=== PATIENT | male | born 1965 | race Caucasian/White ===

== ENCOUNTER 2017-01-14 11:37 | Emergency (ER) | payer OTHER ==
[2017-01-14] MEDS ORDERED: ONDANSETRON 4 MG TAB.RAPDIS PO ONE (12:03)
[2017-01-14] MEDS ORDERED: KETOROLAC TROMETHAMINE 60 MG/2 ML SDV IM ONE (12:03)
--- NOTE | 2017-01-14 12:10 | ER Document Report ---
ED Medical Screen (RME) - General Mode of Arrival: Wheelchair Information source: Patient TRAVEL OUTSIDE OF THE [place] IN LAST 30 DAYS: No - HPI Onset: Other <ADOLFO TRAMMELL - Last Filed: 01/14/17 12:03> <JUAN RIVERO - Last Filed: 01/14/17 13:40> - General Chief Complaint: Flank Pain Stated Complaint: ABDOMINAL PAIN Time Seen by Provider: 01/14/17 11:57 Notes: Patient is a 51 year old male presenting to the emergency department complaining of right flank pain onset a couple of days ago. Patients associated symptoms include constipation, fever, diaphoresis, vomiting, and dark urine. Patient denies any blood in urine. (ADOLFO TRAMMELL) - Related Data Allergies/Adverse Reactions: No Known Allergies Allergy (Verified 01/14/17 11:45) Past Medical History - General Information source: Patient - Social History Cigarette use (# per day): No Chew tobacco use (# tins/day): Yes Frequency of alcohol use: None Drug Abuse: Marijuana - Past Medical History Cardiac Medical History: Reports: Hx Coronary Artery Disease, Hx Hypercholesterolemia, Hx Hypertension Renal/ Medical History: Denies: Hx Peritoneal Dialysis Musculoskeltal Medical History: Denies Hx Arthritis Psychiatric Medical History: Reports: Hx Depression - anxiety Past Surgical History: Reports: Hx Inguinal Hernia - past repairs 1983 to right , 2004 in left, Hx Orthopedic Surgery - Immunizations Hx Diphtheria, Pertussis, Tetanus Vaccination: Yes <ADOLFO TRAMMELL - Last Filed: 01/14/17 12:03> Review of Systems - Review of Systems Constitutional: See HPI, Diaphoresis, Fever EENT: No symptoms reported Cardiovascular: No symptoms reported Respiratory: No symptoms reported Gastrointestinal: See HPI, Vomiting, Constipation Genitourinary: See HPI, Flank pain - right Male Genitourinary: No symptoms reported Musculoskeletal: No symptoms reported Skin: No symptoms reported Hematologic/Lymphatic: No symptoms reported Neurological/Psychological: No symptoms reported -: Yes All other systems reviewed and negative <ADOLFO TRAMMELL - Last Filed: 01/14/17 12:03> Physical Exam - General General appearance: Other - Patient appears uncomfortable and is rocking back and forth. - HEENT Head: Normocephalic, Atraumatic - Respiratory Respiratory status: No respiratory distress Breath sounds: Normal - Cardiovascular Rhythm: Bradycardia - Abdominal Tenderness: Tender - RUQ and suprapubic tender to palpation - Back Back: CVA tenderness - approaching right flank <ADOLFO TRAMMELL - Last Filed: 01/14/17 12:03> - Vital signs Vitals: Temp Pulse Resp BP Pulse Ox 97.4 F 51 L 12 149/83 H 100 01/14/17 11:39 01/14/17 11:39 01/14/17 11:39 01/14/17 11:39 01/14/17 11:39 Course - Laboratory Result Diagrams: 01/14/17 12:18 01/14/17 12:18 <JUAN RIVERO - Last Filed: 01/14/17 13:40> - Vital Signs Vital signs: Temp Pulse Resp BP Pulse Ox 97.4 F 51 L 12 149/83 H 100 01/14/17 11:39 01/14/17 11:39 01/14/17 11:39 01/14/17 11:39 01/14/17 11:39 - Laboratory Laboratory results interpreted by me: 01/14/17 01/14/17 01/14/17 12:10 12:18 12:18 WBC 16.5 H Seg Neutrophils % 87.9 H Lymphocytes % 7.3 L Absolute Neutrophils 14.5 H Sodium 147.4 H Carbon Dioxide 31 H Urine Protein 30 H Urine Blood LARGE H Urine Ascorbic Acid 40 H Scribe Documentation - Scribe Written by Nidia:: Nidia Mac, 01/14/2017 12:11 acting as scribe for :: Rebecca <ADOLFO TRAMMELL - Last Filed: 01/14/17 12:03>
[2017-01-14] MEDS ORDERED: ONDANSETRON HCL INJ/PF 4 MG/2 ML SDV IV ONE (12:27)
[2017-01-14 12:28] LABS: ABSOLUTE LYMPHOCYTES (AUTO) 1.2 10^3/uL (0.5-4.7); ABSOLUTE MONOCYTES (AUTO) 0.8 10^3/uL (0.1-1.4); ABSOLUTE NEUT (AUTO) 14.5 10^3/uL (1.7-8.2); BASOPHILS % (AUTO) 0.1 % (0-2); EOSINOPHILS % (AUTO) 0.1 % (0-6); HEMATOCRIT 45.9 % (37.9-51.0); HEMOGLOBIN 15.3 g/dL (13.5-17.0); LYMPHOCYTES % (AUTO) 7.3 % (13-45); MEAN CORPUSCULAR HGB CONC 33.4 g/dL (32.0-36.0); MEAN CORPUSCULAR VOLUME 96 fl (80-97); MONOCYTES % (AUTO) 4.6 % (3-13); SEGMENTED NEUTROPHILS % (AUTO) 87.9 % (42-78); WHITE BLOOD COUNT 16.5 10^3/uL (4.0-10.5)
[2017-01-14] MEDS ORDERED: KETOROLAC TROMETHAMINE INJ/PF 30 MG/1 ML SDV IV ONE (12:28)
[2017-01-14 12:36] LABS: APPEARANCE,URINE SLIGHTLY-CLOUDY; BILIRUBIN,URINE NEGATIVE (NEGATIVE); GLUCOSE, URINE NEGATIVE (NEGATIVE); KETONES,URINE NEGATIVE (NEGATIVE); LEUKOCYTE ESTERASE,URINE NEGATIVE (NEGATIVE); NITRITE,URINE NEGATIVE (NEGATIVE); PROTEIN,URINE 30 mg/dL (NEGATIVE); URINE SPECIFIC GRAVITY 1.019; UROBILINOGEN,URINE NEGATIVE mg/dL (<2.0)
--- NOTE | 2017-01-14 12:40 | ER Document Report ---
ED GI/ - General Chief Complaint: Flank Pain Stated Complaint: ABDOMINAL PAIN Time Seen by Provider: 01/14/17 11:57 Mode of Arrival: Wheelchair Notes: Patient says that for the past couple of days he has had a hard time having bowel movements and has had very little or no bowel movement in the past 2 days. Since last night and this morning, patient has had pain in the right flank region, very little pain in the abdomen. This pain is constant and severe. Has never had this previously. Has no history of kidney stones. Is nauseated and has vomited several times this morning. Has not had any diarrhea. No blood in his vomitus. His urine is dark colored this morning. Had a fever this morning as well. No cough or cold or chest congestion. Patient has had surgery for abdominal hernias, but no other surgeries. Has a history of hypertension, high cholesterol, and gout. No history of diabetes. No heart disease. Non-smoker TRAVEL OUTSIDE OF THE [place] IN LAST 30 DAYS: No - Related Data Allergies/Adverse Reactions: No Known Allergies Allergy (Verified 01/14/17 11:45) Past Medical History - General Information source: Patient - Social History Smoking Status: Former Smoker Cigarette use (# per day): No Chew tobacco use (# tins/day): Yes Frequency of alcohol use: None Drug Abuse: Marijuana Family History: Reviewed & Not Pertinent Patient has suicidal ideation: No Patient has homicidal ideation: No - Past Medical History Cardiac Medical History: Reports: Hx Coronary Artery Disease, Hx Hypercholesterolemia, Hx Hypertension Musculoskeltal Medical History: Denies Hx Arthritis, Reports Hx Gout Psychiatric Medical History: Reports: Hx Depression - anxiety Past Surgical History: Reports: Hx Inguinal Hernia - past repairs 1983 to right , 2004 in left, Hx Orthopedic Surgery - Immunizations Hx Diphtheria, Pertussis, Tetanus Vaccination: Yes Review of Systems - Review of Systems Notes: REVIEW OF SYSTEMS: CONSTITUTIONAL : Denies fever. EENT: Denies eye, ear, nose or mouth or throat pain or other symptoms. CARDIOVASCULAR: Denies chest pain. RESPIRATORY: Denies cough, chest congestion, or shortness of breath. GASTROINTESTINAL: Has some lateral lower right abdomen pain, but primarily focused in the right flank, and the patient's back area. Has been vomiting and is nauseated but no diarrhea. Has felt slightly constipated the past few days. GENITOURINARY: Denies difficulty or painful urinating, urinary frequency, blood in urine. Urine has been dark. MUSCULOSKELETAL: Denies back or neck pain. Denies joint pain or swelling. SKIN: Denies rash or skin lesions. NEUROLOGICAL: Denies LOC or altered mental status. Denies headache. Denies sensory loss or motor deficits. ALL OTHER SYSTEMS REVIEWED AND NEGATIVE. Physical Exam - Vital signs Vitals: Temp Pulse Resp BP Pulse Ox 97.4 F 51 L 12 149/83 H 100 01/14/17 11:39 01/14/17 11:39 01/14/17 11:39 01/14/17 11:39 01/14/17 11:39 Interpretation: Normal - Notes Notes: PHYSICAL EXAMINATION: GENERAL: Well-appearing, in no acute distress. Vital signs are all essentially normal. Patient appears to be uncomfortable. HEAD: Atraumatic, normocephalic. EYES: Pupils equal round and reactive to light, extraocular movements intact. ENT: oropharynx clear without exudates. Moist mucous membranes. NECK: Normal range of motion, supple. LUNGS: Breath sounds clear and equal bilaterally. HEART: Regular rate and rhythm without murmurs. ABDOMEN: Soft, nontender. No guarding or rebound. No tenderness anywhere in the right lower quadrant, in particular at McBurney's point. BACK: Tender in the right flank region to palpation and percussion. However, no tenderness throughout entire remaining back. EXTREMITIES: Normal range of motion without pain. NEUROLOGICAL: Normal speech, normal gait. Normal sensory, motor, and reflex exams. Awake, alert, and oriented x3. Cranial nerves normal. SKIN: Warm, dry, no rashes. Course - Vital Signs Vital signs: Temp Pulse Resp BP Pulse Ox 98.3 F 51 L 18 137/81 H 97 01/14/17 14:42 01/14/17 14:42 01/14/17 14:42 01/14/17 14:42 01/14/17 14:42 - Laboratory Result Diagrams: 01/14/17 12:18 01/14/17 12:18 Laboratory results interpreted by me: 01/14/17 01/14/17 01/14/17 12:10 12:18 12:18 WBC 16.5 H Seg Neutrophils % 87.9 H Lymphocytes % 7.3 L Absolute Neutrophils 14.5 H Sodium 147.4 H Carbon Dioxide 31 H Urine Protein 30 H Urine Blood LARGE H Urine Ascorbic Acid 40 H Discharge - Discharge Clinical Impression: Ureteral calculus, right Condition: Stable Disposition: HOME, SELF-CARE Additional Instructions: KIDNEY STONE: You are passing or have passed a kidney stone. These stones are usually due to increased calcium or uric acid concentrations in your urine. Stones within the kidney itself are not painful. The pain occurs as the stone leaves the kidney to pass down the long tube, called the ureter, leading to the bladder. If the stone is small, it will usually pass by itself. Most patients can pass the stone at home. You will usually receive medications for pain, nausea or vomiting, and sometimes a medication to assist in passing the kidney stone. However, if the pain is very severe or if vomiting prevents you from taking oral pain medications, you may need to return for further treatment. Drink three or four quarts of fluids per day. You will be given pain medication (if needed) and urine strainers. Strain all your urine to see if the stone passes. If your doctor has asked you to bring the stone in for analysis, return with the stone once it has passed. Return if pain or vomiting become severe, if you develop a high fever, if you are unable to pass your urine, or if other unusual symptoms occur. TORADOL INJECTION: You have been given an injection of ketorolac tromethamine (Toradol). This is an excellent, safe drug for pain control. It also has potent antiinflammatory action. You should have significant pain relief within about one hour. Toradol is not addicting and is non-sedating. It does not interfere with driving or work. Call or return if you develop itching, hives, shortness of breath, or rash. ANTINAUSEA MEDICATION: You have been given a medication to suppress nausea and vomiting. This type of medication can be given as a shot, pill, or suppository. It will usually last for many hours. Pills and shots usually last six to eight hours, suppositories last about 12 hours. For the typical illness, only one or two doses of the medication may be necessary. Mild lightheadedness may occur. This type of medicine can cause drowsiness. Do not drive or operate dangerous machinery while under its influence. Do not mix with alcohol. See your doctor at once if you have muscle spasms or tightness, or uncontrollable motions (particularly of the neck, mouth, or jaw). Persistent vomiting or severe lightheadedness should also be evaluated by the physician. ORAL NARCOTIC MEDICATION: You have been given a prescription for pain control. This medication is a narcotic. It's best taken with food, as nausea can result if taken on an empty stomach. Don't operate machinery or drive within six hours of taking this medication. Do not combine this medicine with alcohol, or with any medication which can cause sedation (such as cold tablets or sleeping pills) unless you get permission from the physician. Narcotics tend to cause constipation. If possible, drink plenty of fluids and eat a diet high in fiber and fruits. FLOMAX (tamsulosin): Flomax is a medicine that shrinks the prostate gland. It helps relieve symptoms of benign prostatic hypertrophy, such as frequent urination, weak stream, and inadequate emptying. It has been shown to dilate the ureter (tube leading from the kidney to the bladder) and help in passing kidney stones Flomax usually causes no side effects. You may notice slight tiredness and dizziness for a few days. Some patients develop nasal congestion. Rarely, impotence can occur. If the symptoms are bothersome and don't improve with continued use, call your doctor. Contact your doctor or return if you have fainting spells, severe weakness or dizziness, shortness of breath, or rash. FOLLOW-UP CARE: If you have been referred to a physician for follow-up care, call the physician s office for an appointment as you were instructed or within the next two days. If you experience worsening or a significant change in your symptoms, notify the physician immediately or return to the Emergency Department at any time for re-evaluation. Your stone is 5 mm, which you may be able to pass. The Flomax that is prescribed may help you pass the stone. You have been provided with medications for nausea and vomiting as well as her pain. If you pass the stone, you will not need any further follow-up. If you do not pass the stone by Tuesday, I would recommend you make an appointment to follow- up with a urologist and I am providing you with contact information for a local urology group based in [place], but they do have a [place] office. Reasons to return to the emergency department include severe pain uncontrolled by the pain medicines prescribed, if you develop nausea and vomiting is not controlled by the medications, or if you start running a significant fever. Prescriptions: Ondansetron [Zofran Odt 4 mg Tablet] 1 - 2 tab PO Q4H PRN #15 tab.rapdis PRN Reason: For Nausea/Vomiting Oxycodone HCl/Acetaminophen [Percocet 5-325 mg Tablet] 1 - 2 tab PO Q4H PRN #25 tablet PRN Reason: Tamsulosin HCl [Flomax] 0.4 mg PO DAILY #7 cap.er.24h Referrals: [facility] [Provider Group] - Follow up as needed [facility] [Provider Group] - Follow up as needed [facility] [NO LOCAL MD] - Follow up as needed
[2017-01-14 12:54] LABS: ALANINE AMINOTRANSFERASE 43 U/L (21-72); ALKALINE PHOSPHATASE 80 U/L (38-126); ANION GAP 14 (5-19); ASPARTATE AMINO TRANSFERASE 30 U/L (17-59); BILIRUBIN,DIRECT 0.3 mg/dL (0.0-0.4); BILIRUBIN,TOTAL 0.8 mg/dL (0.2-1.3); BLOOD UREA NITROGEN 17 mg/dL (7-20); CALCIUM 10.1 mg/dL (8.4-10.2); CARBON DIOXIDE 31 mmol/L (22-30); CHLORIDE 102 mmol/L (98-107); CREATININE RESULT 1.03 mg/dL (0.52-1.25); GLUCOSE 106 mg/dL (75-110); POTASSIUM 4.2 mmol/L (3.6-5.0); SODIUM 147.4 mmol/L (137-145)
--- NOTE | 2017-01-14 13:18 | RADIOLOGY REPORT (SQ) ---
EXAM DESCRIPTION: CT ABD/PELVIS NO ORAL OR IV COMPLETED DATE/TIME: 01/14/2017 12:57 pm REASON FOR STUDY: Right lower flank pain,? Stone COMPARISON: None. TECHNIQUE: CT scan of the abdomen and pelvis performed without intravenous or oral contrast. Images reviewed with lung, soft tissue, and bone windows. Reconstructed coronal and sagittal MPR images revi ewed. All images stored on PACS. All CT scanners at this facility use dose modulation, iterative reconstruction, and/or weight based d osing when appropriate to reduce radiation dose to as low as reasonably achievable (ALARA). [facility]: Dose Right [facility]: CareDose [facility]: Dose Right [facility]: Teradose 4D [facility]: Smart FID3 RADIATION DOSE: Up-to-date CT equipment and radiation dose reduction techniques were employed. CTDIv ol: 7.8 mGy. DLP: 397 mGy-cm.mGy. LIMITATIONS: None. FINDINGS: A 5 mm stone is present in the distal right ureter at the ureterovesical junction. This c auses moderate right-sided hydronephrosis and hydroureter, and mild perinephric stranding. Stone is best shown on axial image 69 and coronal image 41. Right kidney has a 2 mm right midpole intrarenal nonobstructive calculus on axial image 30. No right renal cysts or masses. No other ureteral stones. LOWER CHEST: Lung bases are clear. Small hiatal hernia. NON-CONTRASTED LIVER, SPLEEN, ADRENALS: Evaluation limited by lack of IV contrast. No identified sign ificant masses. PANCREAS: No masses. No peripancreatic inflammatory changes. GALLBLADDER: No identified stones by CT criteria. No inflammatory changes to suggest cholecystitis. RIGHT KIDNEY AND URETER: As above LEFT KIDNEY AND URETER: No suspicious masses. Assessment limited by lack of IV contrast. Tiny less than 5 mm intrarenal nonobstructive left lower pole calculus. No hydronephrosis or hydroureter. AORTA AND RETROPERITONEUM: No aneurysm. No retroperitoneal masses or adenopathy. BOWEL AND PERITONEAL CAVITY: No obvious masses or inflammatory changes. No free fluid. APPENDIX: Normal. PELVIS, BLADDER, AND ABDOMINAL WALL:No abnormal masses. No free fluid. Bladder normal. BONES: No significant findings. OTHER: No other significant finding. IMPRESSION: 5 mm distal right ureteral stone, causing moderate right hydronephrosis and hydroureter. Mild perinephric stranding right kidney COMMENT: Quality ID # [id number]: Final reports with documentation of one or more dose reduction techniques (e.g., Automated exposure control, adjustment of the mA and/or kV according to patient size, use of iterative reconstruction technique) TECHNICAL DOCUMENTATION: JOB ID: [id number] [employer]- All Rights Reserved
[2017-01-14 14:42] VITALS: BP 137/81
== END 2017-01-14 14:50 | disposition home or self-care (01) ==
LOC: ER 11:37
DX: N20.1 Calculus of ureter (principal); R10.9 Unspecified abdominal pain; R50.9 Fever, unspecified; Z87.891 Personal history of nicotine dependence
CPT/HCPCS: 99284; 96372; 96374; 36415; 87086; 83690; 85025; 80053; 81001; 74176; J1885; J2405